=== PATIENT | male | born 1995 ===

== ENCOUNTER 2024-10-22 17:36 | Inpatient (IN) | payer OTHER, SELFPAY ==
[2024-10-22] VITALS (42 sets, daily range): BP systolic 120–170; BP diastolic 68–94; PULSE 91–120; RESP 15–32; TEMP 36.6–38.5; O2SAT 94–100
--- NOTE | 2024-10-22 17:53 | ED.GENADUL_ITS ---
Discharge Plan Disposition Patient Disposition: Admit to [facility] Discharge Details Primary Care Provider: AnnieLocal ED Provider: Aria Maurer Home Meds and New Rx's Prescriptions: No Action metformin 500 mg tablet 500 mg PO BID Patient Comments: Pt states he has not taken his medication for several weeks - ML 10/22/24 HPI General Mode of arrival: wheelchair . Date/Time Provider Initiated Documentation: 10/22/24 17:44 . Limitations to Documentation: no limitations . Information obtained by: patient, family, RN notes reviewed and old records reviewed . HPI Narrative: 29-year-old male presents to the ER chief complaint of abdominal pain and vomiting since this morning. History of type 2 diabetes mellitus has not been taking his metformin for approximately a month due to financial reasons. No h istory abdominal surgeries. BGL in triage is 267. He did take some Tums after second time he vomited. He reports he has vomited 3 times. Denies any fever or chills he is complaining of generalized abdominal pain. Related Data Home Medications ?Medication ?Instructions ?Recorded ?Confirmed metformin 500 mg tablet 500 mg PO BID 10/22/24 10/22/24 Allergies Allergy/AdvReac Type Severity Reaction Status Date / Time No Known Allergies Allergy Verified 10/22/24 17:43 General Stated Complaint: GenMedical LEIA: 3 Review of Systems All systems reviewed & are unremarkable except as noted in HPI and below Constitutional Constitutional: Reports as per HPI and Reports fever(s) Gastrointestinal Gastrointestinal: Reports abdominal pain, Reports nausea and Reports vomiting Exam Narrative Exam Narrative: Constitutional: Alert and oriented x3. Appears stated age. Obese body habitus. Does appear somewhat pale. Head: Normocephalic, no trauma. Eyes: Pupils PERRL, Red reflex noted, EOM's intact. Eyelids symmetrical without lesions, discharge, or swelling. ENT: Bilateral TM's WNL, External ear normal to inspection, no mastoid TTP, swelling, or erythema, Nasal turbinates WNL, no nasal discharge. Normal dentition, Posterior pharynx WNL, no exudate. Chest: RRR, Normal S1, S2, distal pulses intact. Resp: Lungs clear to auscultation bilaterally, no wheezes, rales, or rhonchi. Abdomen: Soft, non-distended, Normoactive bowel sounds all 4 quads. Generalized tenderness with palpation. Musculoskeletal: Normal gait, Moves all 4 extremities without difficulty. Skin: No suspicious rashes or lesions. Capillary refill less than 2 sec. Neurologic: Cranial nerves II-XII intact. Alert and oriented x 3. Motor: No deficits noted. Sensory: Intact bilaterally all 4 extremities. Hematologic/Lymphatic: No ecchymosis, no lymphadenopathy. Course Vital Signs Vital signs: Vital Signs Temperature 36.6 C 10/22/24 17:37 Pulse 106 H 10/22/24 17:37 Respiratory Rate 18 10/22/24 17:37 Blood Pressure 140/93 H 10/22/24 17:37 Pulse Oximetry 100 10/22/24 17:37 Temperature 36.6 C 10/22/24 17:46 Temperature Source Oral 10/22/24 17:46 Pulse 106 H 10/22/24 17:46 Respiratory Rate 18 10/22/24 17:46 Blood Pressure 140/93 H 10/22/24 17:46 Blood Pressure Position Sitting 10/22/24 17:46 Pulse Oximetry 100 10/22/24 17:46 Oxygen Delivery Method Room Air 10/22/24 17:46 Oxygen Flow Rate 0 10/22/24 17:46 Pain Level 8 10/22/24 17:46 Medical Decision Making 29-year-old male presents to the ER chief complaint of abdominal pain and vomiting since this morning. History of type 2 diabetes mellitus has not been taking his metformin for approximately a month due to financial reasons. No history abdominal surgeries. BGL in triage is 267. He did take some Tums after second time he vomited. He reports he has vomited 3 times. Denies any fever or chills he is complaining of generalized abdominal pain. Workup ordered including CBC CMP hemoglobin A1c lactate lipase urinalysis Zofran 4 mg IV. Lactate 2.5, liter of LR ordered, informed by staffing program manager that patient is febrile 38.5 g of Tylenol IV ordered, blood cultures x 2, Fluvid chest x-ray CT abdomen pelvis. Hemoglobin A1c is 10.6 glucose is 282 bilirubin 1.37 lipase within normal limits. Anion gap 16.9. Radiologist Dr. Seay regarding CT abd Pelvis and chest x-ray. Chest x-ray wit hin normal limits, fatty liver noted, fluid-filled small bowel loops possible enteritis. No evidence of appendicitis or bowel obstruction. No evidence of perirectal abscess. See official report. 40meq KCL and NS ordered at 200/hr, Insulin drip ordered. Will discuss patient case with hospitalist Dr. Anaya. Insulin drip on hold at this time until eval by Dr. Anaya. This text was generated using Whodiniation system, please disregard any oddities of phrase or misspellings. Care is to be handed off to oncoming provider Susana Ishaan Liang pending CT chest rule out PE with most likely admission. Medical Records Medical records reviewed: Yes I reviewed the patient's medical records. Imaging Data Radiologic Study: Imaging: CT Scan Radiologist's impression: CONTRAST MATERIAL: Intravenous: Omnipaque-350 100cc Oral: None COMPARISON: CR XR CHEST 2V PA LATERAL from 10/22/2024 FINDINGS: VISUALIZED LUNG BASES: No nodules nor pleural effusions evident. ABDOMEN: There is no ascites. LIVER: Liver is diffusely hypodense implying steatosis. There no discrete focal hepatic lesions. No dilated intrahepatic ducts. GALLBLADDER/BILIARY: No obvious gallbladder pathology. CBD is not dilated. PANCREAS: No evidence of pancreatic mass nor dilatation of the pancreatic duct. SPLEEN: Spleen is not enlarged. No obvious intrasplenic lesions. Splenic and portal veins are patent. ADRENALS: There are no significant adrenal masses. KIDNEYS:No cysts evident. No solid renal masses. No calculi nor hydronephrosis.. ABDOMINAL AORTA: Abdominal aorta is not enlarged. LYMPH NODES:There is no retroperitoneal nor paraaortic adenopathy. ABDOMINAL WALL: No evidence of significant anterior abdominal wall nor inguinal hernia. GI: There are some fluid-filled small bowel loops. Small bowel loops upper normal diameter. Suspect element of possible enteritis. Normal appearing fecal stream in the colon. No obvious colitis pattern evident. No evidence of bowel obstruction, free air, nor abscess. No abnormal mesenteric masses nor prominent mesenteric lymphadenopathy. PELVIS: GI: No evidence of appendicitis.No evidence of significant sigmoid diverticular disease. No evidence of colitis pattern. LYMPH NODES: There is no intrapelvic nor inguinal adenopathy. REPRODUCTIVE: Prostate normal size. Seminal vesicles unremarkable. URINARY BLADDER: No calculi nor obvious masses evident. Normal wall thickness. OSSEOUS: No fractures and no significant osseous lesions. Sacroiliac joints appear unremarkable. IMPRESSION: 1. Liver is diffusely hypodense implying steatosis. Liver size is slightly prominent. There are no focal hepatic lesions. Correlation with appropriate blood work recommended. There is no dilatation biliary tree, both intra and extrahepatic. 2. Fluid-filled but nondilated small bowel loops; probable element of enteritis. Lab Data Lab results reviewed: Yes I reviewed the patient's lab results. Labs: 10/22/24 19:30 Blood Blood Culture - Pending 10/22/24 18:54 Blood Blood Culture - Pending Laboratory Tests Range/Units 10/22/24 10/22/24 10/22/24 18:01 18:55 20:38 WBC (4.4-10.8) 10^3/uL 16.46 H RBC (4.36-5.78) 10^6/uL 6.12 H Hgb (13.5-17.5) g/dL 17.8 H Hct (40.0-50.0) % 51.2 H MCV (80-95) fL 84 MCH (27.0-33.0) pg 29.1 MCHC (32.0-36.0) % 34.8 RDW (11.8-14.1) % 12.4 Plt Count (130-400) 10^3/uL 290 MPV (8.0-11.0) fL 9.8 Immature Gran % % 0.7 Neutrophils % % 87.2 Lymphocytes % % 7.8 Monocytes % % 3.7 Eosinophils % % 0.2 Basophils % % 0.4 Nucleated RBC % (0.0-0.3) % 0.0 Absolute Neutrophils (1.2-6.7) 10^3/uL 14.35 H Absolute Lymphocytes (1.2-3.4) 10^3/uL 1.28 Absolute Monocytes (0.1-0.8) 10^3/uL 0.61 Absolute Eosinophils (0.0-0.7) 10^3/uL 0.03 Absolute Basophils (0.0-0.2) 10^3/uL 0.07 RBC Morphology Normal VBG pH (7.31-7.41) VBG pCO2 (41-51) mmHg VBG pO2 mmHg VBG HCO3 (23-28) mmol/L VBG Total CO2 (24-29) mmol/L VBG O2 Saturation % VBG Base Excess (-2-3) mmol/L VBG Lactate (0.6-1.4) mmol/L 2.5 H* Sodium (136-145) mmol/L 139 Potassium (3.5-5.1) mmol/L 3.8 Chloride (98-107) mmol/L 102 Carbon Dioxide (21.0-32.0) mmol/L 20.1 L Anion Gap (3-11) mmol/L 16.9 H BUN (7-18) mg/dL 14 Creatinine (0.70-1.30) mg/dL 1.0 Est GFR (CKD-EPI 2020) (mL/min/1.73m2) 103.84 Glucose (74-106) mg/dL 282 H Hemoglobin A1c (<5.7) % 10.6 H Calcium (8.5-10.1) mg/dL 9.7 Magnesium (1.8-2.4) mg/dL 1.9 Total Bilirubin (0.2-1.0) mg/dL 1.37 H AST (15-37) U/L 12 L ALT (16-63) U/L 34 Alkaline Phosphatase (46-116) U/L 93 Creatine Kinase (39-308) U/L Troponin I (<or=76) ng/L Total Protein (6.4-8.2) g/dL 9.2 H Albumin (3.4-5.0) g/dL 4.6 Lipase (<78) U/L 35 Urine Color (Yellow) Yellow Urine Clarity (Clear) Clear Urine pH (5-8) 5.5 Ur Specific [place] (1.005-1.025) 1.010 Urine Protein (Neg-Trace) mg/dL 30 H Urine Ketones (Negative) mg/dL >=160 H Urine Blood (Negative) Negative Urine Nitrite (Negative) Negative Urine Bilirubin (Negative) Negative Urine Urobilinogen (Up to 0.2) mg/dL 0.2 Ur Leukocyte Esterase (Negative) Negative Urine RBC (0-2) HPF 0-2 Urine WBC (0-5) HPF 3-5 Ur Epithelial Cells (Negative) HPF Negative Urine Crystals (Negative) HPF Negative Urine Bacteria (Negative) HPF Negative Urine Casts (Negative) LPF Negative Urine Mucus (Negative) Negative Ur Culture Indicated? No Urine Glucose (Negative) mg/dL 500 H COVID-19 Source NASOPHARYNX SARS-CoV-2 (PCR) (Negative) Negative Influenza Type A (PCR) (Negative) Negative Influenza Type B (PCR) (Negative) Negative RSV (PCR) (Negative) Negative Range/Units 10/22/24 10/22/24 20:40 22:00 WBC (4.4-10.8) 10^3/uL RBC (4.36-5.78) 10^6/uL Hgb (13.5-17.5) g/dL Hct (40.0-50.0) % MCV (80-95) fL MCH (27.0-33.0) pg MCHC (32.0-36.0) % RDW (11.8-14.1) % Plt Count (130-400) 10^3/uL MPV (8.0-11.0) fL Immature Gran % % Neutrophils % % Lymphocytes % % Monocytes % % Eosinophils % % Basophils % % Nucleated RBC % (0.0-0.3) % Absolute Neutrophils (1.2-6.7) 10^3/uL Absolute Lymphocytes (1.2-3.4) 10^3/uL Absolute Monocytes (0.1-0.8) 10^3/uL Absolute Eosinophils (0.0-0.7) 10^3/uL Absolute Basophils (0.0-0.2) 10^3/uL RBC Morphology VBG pH (7.31-7.41) 7.47 H VBG pCO2 (41-51) mmHg 26 L VBG pO2 mmHg 71 VBG HCO3 (23-28) mmol/L 18 L VBG Total CO2 (24-29) mmol/L 16 L VBG O2 Saturation % 97 VBG Base Excess (-2-3) mmol/L -5 L VBG Lactate (0.6-1.4) mmol/L 1.4 Sodium (136-145) mmol/L 139 Potassium (3.5-5.1) mmol/L 3.3 L Chloride (98-107) mmol/L 105 Carbon Dioxide (21.0-32.0) mmol/L 19.6 L Anion Gap (3-11) mmol/L 14.4 H BUN (7-18) mg/dL 13 Creatinine (0.70-1.30) mg/dL 0.9 Est GFR (CKD-EPI 2020) (mL/min/1.73m2) 117.83 Glucose (74-106) mg/dL 261 H Hemoglobin A1c (<5.7) % Calcium (8.5-10.1) mg/dL 8.4 L Magnesium (1.8-2.4) mg/dL Total Bilirubin (0.2-1.0) mg/dL AST (15-37) U/L ALT (16-63) U/L Alkaline Phosphatase (46-116) U/L Creatine Kinase (39-308) U/L 44 Troponin I (<or=76) ng/L < 4 Total Protein (6.4-8.2) g/dL Albumin (3.4-5.0) g/dL Lipase (<78) U/L Urine Color (Yellow) Urine Clarity (Clear) Urine pH (5-8) Ur Specific [place] (1.005-1.025) Urine Protein (Neg-Trace) mg/dL Urine Ketones (Negative) mg/dL Urine Blood (Negative) Urine Nitrite (Negative) Urine Bilirubin (Negative) Urine Urobilinogen (Up to 0.2) mg/dL Ur Leukocyte Esterase (Negative) Urine RBC (0-2) HPF Urine WBC (0-5) HPF Ur Epithelial Cells (Negative) HPF Urine Crystals (Negative) HPF Urine Bacteria (Negative) HPF Urine Casts (Negative) LPF Urine Mucus (Negative) Ur Culture Indicated? Urine Glucose (Negative) mg/dL COVID-19 Source SARS-CoV-2 (PCR) (Negative) Influenza Type A (PCR) (Negative) Influenza Type B (PCR) (Negative) RSV (PCR) (Negative) Quality:SDOH Health Related Social Needs: No Data to Display [facility] Social History Smoking/Tobacco Use Status: Never Smoking risk assessment performed?: Yes Alcohol Intake: never Drug use: Never Substance use type: does not use Do you feel safe at home: Yes Do you feel safe in your relationship?: Yes
[2024-10-22 18:07] LABS: Abs Immature Grans 0.12 10^3/uL (0.0-0.06); Absolute Basophil Count 0.07 10^3/uL (0.0-0.2); Absolute Eosinophil Count 0.03 10^3/uL (0.0-0.7); Absolute Lymphocyte Count 1.28 10^3/uL (1.2-3.4); Absolute Monocyte Count 0.61 10^3/uL (0.1-0.8); Absolute Neutrophil Count 14.35 10^3/uL (1.2-6.7); Basophils % 0.4 %; Eosinophils % 0.2 %; HCT 51.2 % (40.0-50.0); HGB 17.8 g/dL (13.5-17.5); Immature Grans % 0.7 %; Lactate 2.5 mmol/L (0.6-1.4); Lymphocytes % 7.8 %; MCH 29.1 pg (27.0-33.0); MCHC 34.8 % (32.0-36.0); MCV 84 fL (80-95); MPV 9.8 fL (8.0-11.0); Monocytes % 3.7 %; Neutrophils % 87.2 %; Platelet Count 290 10^3/uL (130-400); RBC 6.12 10^6/uL (4.36-5.78); RDW 12.4 % (11.8-14.1); RDW-SD 37.2 fL; WBC 16.46 10^3/uL (4.4-10.8)
[2024-10-22] MEDS: Lactated Ringers 1,000 ML 1000 ML IV (18:16)
[2024-10-22 18:23] LABS: ALT 34 U/L (16-63); AST 12 U/L (15-37); Albumin 4.6 g/dL (3.4-5.0); Alkaline Phosphatase 93 U/L (46-116); Anion Gap 16.9 mmol/L (3-11); BUN 14 mg/dL (7-18); Bilirubin, Total 1.37 mg/dL (0.2-1.0); CO2 20.1 mmol/L (21.0-32.0); Calcium 9.7 mg/dL (8.5-10.1); Chloride 102 mmol/L (98-107); Diff Comment Diff Reviewed; Estimated GFR 103.84 (mL/min/1.73m2); Glucose 282 mg/dL (74-106); Lipase 35 U/L (<78); Magnesium 1.9 mg/dL (1.8-2.4); Potassium 3.8 mmol/L (3.5-5.1); RBC Morphology Normal; Sodium 139 mmol/L (136-145); Total Protein 9.2 g/dL (6.4-8.2)
[2024-10-22] MEDS: Ondansetron 4 MG/2 ML VIAL IVP (18:30)
--- NOTE | 2024-10-22 18:30 | DI.RAD_ITS ---
Exam(s) XR CHEST 2V PA LATERAL EXAM: XR CHEST 2V PA LATERAL CLINICAL HISTORY: Fever. TECHNIQUE: 2D digital imaging was performed. COMPARISON: No exams were available for comparison FINDINGS: 2 views: Heart size is normal. The mediastinum is not widened. Lungs are clear. No infiltrates nor pleural effusions. IMPRESSION: No acute pulmonary findings. DATA REPOSITORY: RADIATION DOSE DELIVERED:
--- NOTE | 2024-10-22 18:30 | DI.CT_ITS ---
Exam(s) CT ABDOMEN PELVIS W EXAM: CT ABDOMEN PELVIS W CLINICAL HISTORY: Abdominal pain, fever. TECHNIQUE: Imaging Protocol: Axial computed tomography images with coronal and sagittal reformatted images were created and reviewed CONTRAST MATERIAL: Intravenous: Omnipaque-350 100cc Oral: None COMPARISON: CR XR CHEST 2V PA LATERAL from 10/22/2024 FINDINGS: VISUALIZED LUNG BASES: No nodules nor pleural effusions evident. ABDOMEN: There is no ascites. LIVER: Liver is diffusely hypodense implying steatosis. There no discrete focal hepatic lesions. No dilated intrahepatic ducts. GALLBLADDER/BILIARY: No obvious gallbladder pathology. CBD is not dilated. PANCREAS: No evidence of pancreatic mass nor dilatation of the pancreatic duct. SPLEEN: Spleen is not enlarged. No obvious intrasplenic lesions. Splenic and portal veins are paten t. ADRENALS: There are no significant adrenal masses. KIDNEYS:No cysts evident. No solid renal masses. No calculi nor hydronephrosis.. ABDOMINAL AORTA: Abdominal aorta is not enlarged. LYMPH NODES:There is no retroperitoneal nor paraaortic adenopathy. ABDOMINAL WALL: No evidence of significant anterior abdominal wall nor inguinal hernia. GI: There are some fluid-filled small bowel loops. Small bowel loops upper normal diameter. Suspect element of possible enteritis. Normal appearing fecal stream in the colon. No obvious colitis jason clarisa evident. No evidence of bowel obstruction, free air, nor abscess. No abnormal mesenteric masses nor prominent mesenteric lymphadenopathy. PELVIS: GI: No evidence of appendicitis.No evidence of significant sigmoid diverticular disease. No evidence of colitis pattern. LYMPH NODES: There is no intrapelvic nor inguinal adenopathy. REPRODUCTIVE: Prostate normal size. Seminal vesicles unremarkable. URINARY BLADDER: No calculi nor obvious masses evident. Normal wall thickness. OSSEOUS: No fractures and no significant osseous lesions. Sacroiliac joints appear unremarkable. IMPRESSION: 1. Liver is diffusely hypodense implying steatosis. Liver size is slightly prominent. There are no focal hepatic lesions. Correlation with appropriate blood work recommended. There is no dilatation biliary tree, both intra and extrahepatic. 2. Fluid-filled but nondilated small bowel loops; probable element of enteritis. Report called by myself to ER provider 10/22/2024 at 7:25 p.m. RADIATION DOSE DELIVERED: 1,270.74mGy.cm Total DLP DATA REPOSITORY: All CT scans at this facility are submitted to the National Radiology Data Registry (NRDR) Dose Index Registry (DIR) with the [employer] ([employer]). RADIATION OPTIMIZATION: All CT scans at this facility use at least one of these dose optimization te chniques: automated exposure control; mA and/or kV adjustment per patient size (includes targeted exa ms where dose is matched to clinical indication); or iterative reconstruction.
[2024-10-22 18:35] LABS: Hemoglobin A1C 10.6 % (<5.7)
[2024-10-22] MEDS: ACETAMINOPHEN 1,000 MG/100 ML BAG 400 MG IVPB (18:47)
[2024-10-22] MEDS: Normal Saline - Diluent 50 ML VIAL IJ ×2 (19:08→21:51)
[2024-10-22] MEDS: Omnipaque 350 MG/ML 100 ML BTL IJ ×2 (19:09→21:50)
[2024-10-22 19:36] LABS: COVID-19 PCR Negative (Negative); Influenza A PCR Negative (Negative); Influenza B PCR Negative (Negative); RSV PCR Negative (Negative)
[2024-10-22 19:37] LABS: Source NASOPHARYNX
[2024-10-22] MEDS: Ibuprofen 600 MG TAB PO (20:20)
[2024-10-22 20:50] LABS: Lactate 1.4 mmol/L (0.6-1.4)
--- NOTE | 2024-10-22 21:00 | DI.CT_ITS ---
Exam(s) CT CHEST PE CTA EXAM: CT CHEST PE CTA CLINICAL HISTORY: Tachycardia, chest pain, SOB. TECHNIQUE: Imaging Protocol: CT angiography of the chest was performed using pulmonary embolus marnie col. Multi planar reconstructions were performed. CONTRAST MATERIAL: Intravenous: Omnipaque 350 Contrast volume: 85 cc COMPARISON: No exams were available for comparison FINDINGS: CHEST: PULMONARY ARTERIES: There are no intraluminal filling defects to suggest acute pulmonary emboli. LUNGS: There are no infiltrates nor evidence of pulmonary infarction.. There are no pleural effusions . MEDIASTINUM: There is no hilar nor mediastinal adenopathy. Visualized thyroid unremarkable. CARDIAC: Heart size is upper normal. There is no pericardial effusion.Caliber of the thoracic aorta is within normal limits. No evidence of dissection there is no significant shift of the interventricu lar septum. PARTIALLY VISUALIZED UPPERMOST ABDOMEN: Hepatic steatosis noted OSSEOUS: No significant osseous lesions.. IMPRESSION: 1. No evidence of acute pulmonary emboli. No evidence of pulmonary infarction. No pulmonary infiltr ates and no pleural effusions. 2. Hepatic steatosis noted RADIATION DOSE DELIVERED: 321.22mGy.cm Total DLP DATA REPOSITORY: All CT scans at this facility are submitted to the National Radiology Data Registry (NRDR) Dose Index Registry (DIR) with the [employer] (ACR). RADIATION OPTIMIZATION: All CT scans at this facility use at least one of these dose optimization te chniques: automated exposure control; mA and/or kV adjustment per patient size (includes targeted exa ms where dose is matched to clinical indication); or iterative reconstruction.
[2024-10-22 21:01] LABS: Bilirubin Negative (Negative); Blood Negative (Negative); Clarity Clear (Clear); Glucose 500 mg/dL (Negative); Ketones >=160 mg/dL (Negative); Leukocyte Esterase Negative (Negative); Nitrite Negative (Negative); Urobilinogen 0.2 mg/dL (Up to 0.2); pH 5.5 (5-8)
[2024-10-22 21:12] LABS: Bacteria Negative HPF (Negative); C & S Indicated? No; Casts Negative LPF (Negative); Crystals Negative HPF (Negative); Epithelial Cells Negative HPF (Negative); Mucus Negative (Negative); RBC 0-2 HPF (0-2)
[2024-10-22] MEDS: Normal Saline 1,000 ML 1000 ML IV (21:15)
--- NOTE | 2024-10-22 21:15 | RT.EKG_ITS ---
APPROVED REPORT Exam: Resting ECG Reason for Exam: Chest pain Patient Location: E HR:106 bpm ECG Measurements Heart Rate 106 AXIS MT 159 P 21 QRSd 85 QRS 24 QT 325 T 29 QTc 433 Conclusion Sinus tachycardia 106 no aute ischemia
[2024-10-22] MEDS: Albuterol/Ipratropium 3 ML UPD VIAL UPD (21:29)
[2024-10-22] MEDS: Aspirin 81 MG CHEW 324 MG CH (21:29)
[2024-10-22] MEDS: Insulin REGULAR-Human 100 UNITS/ML UNIT 10 UNITS IV (21:39)
--- NOTE | 2024-10-22 21:39 | W.EDPROG ---
Date of service: 10/22/24 Time of Service: 21:39 Medical Decision Making Case reviewed with nurse practitioner. Patient is a 29-year-old gentleman with history of diabetes, noncompliant with medication presenting with vomiting and abdominal pain for 1 day. On lab work evaluation, white blood cell hemoglobin hematocrit are all elevated likely due to dehydration. Initially lactic acid was elevated after 1 L of IV fluids, it came down to 1.4. Patient has an elevated anion gap and carbon dioxide level of 20 in addition to his hyperglycemia, concern for likely DKA given that he also has significant ketones in his urine. IV insulin has been given, a VBG has been ordered. His viral testing is negative. The CT report was reviewed, mild ileus possible enteritis but no bowel obstruction. Consistent with symptoms today. Patient then developed acute chest pain. EKG ordered and reviewed: Sinus tachycardia [address] changes, LVH. A dose of aspirin was given the patient was sent for CT of his chest. Quality:[facility] Health Related Social Needs: No Data to Display Discharge Plan Disposition Patient Disposition: Admit to [facility] Discharge Details Primary Care Provider: Annie,Local ED Provider: Aria Maurer Home Meds and New Rx's Prescriptions: No Action metformin 500 mg tablet 500 mg PO BID Patient Comments: Pt states he has not taken his medication for several weeks - ML 10/22/24
[2024-10-22 22:05] LABS: BE (Venous) -5 mmol/L (-2-3); HCO3 (Venous) 18 mmol/L (23-28); O2 Sat (Venous) 97 %; TCO2 (Venous) 16 mmol/L (24-29); pCO2 (Venous) 26 mmHg (41-51); pH (Venous) 7.47 (7.31-7.41); pO2 (Venous) 71 mmHg
[2024-10-22 22:18] LABS: Anion Gap 14.4 mmol/L (3-11); BUN 13 mg/dL (7-18); CO2 19.6 mmol/L (21.0-32.0); CREATININE 0.9 mg/dL (0.70-1.30); Calcium 8.4 mg/dL (8.5-10.1); Chloride 105 mmol/L (98-107); Estimated GFR 117.83 (mL/min/1.73m2); Glucose 261 mg/dL (74-106); Potassium 3.3 mmol/L (3.5-5.1); Sodium 139 mmol/L (136-145)
[2024-10-22 22:26] LABS: Creatine Kinase 44 U/L (39-308)
[2024-10-22 22:27] LABS: Troponin I < 4 ng/L (<or=76)
[2024-10-22] MEDS: POTASSIUM CHLORIDE/0.9% NACL 1,000 ML 200 MEQ IV (22:57)
--- NOTE | 2024-10-22 23:12 | W.PM.HP.N ---
Date of service: 10/22/24 Time of Service: 23:12 Assessment and Plan Assessment and plan (1) Gastroenteritis: Status: Acute Assessment and plan: I believe the most likely diagnosis here is gastroenteritis -- with compatible symptoms, fever, leukocytosis and compatible CT findings. I think the ketonuria is likely a starvation type ketosis. I cannot at present account for what appears to be a respiratory alkalosis -- perhaps patient discomfort is creating some hyperventilation? Gastroenteritis: supportive care with IVF, antiemetics, track electrolytes and renal function DM: SS coverage q6H for now Respiratory alkalosis: trend VBG for now Full Code History of Present Illness History of Present Illness Chief Complaint: vomiting Narrative: 29 male with Type 2 DM -- here with one day of bilious vomiting and vague periumbilical abdominal pain. No diarrhea. In ER findings of note for temp 38.5, white count 16, and CT abdomen showing few fluid filled loops small bowel c/w enteritis, and fatty liver, no other significant findings. Lab of note for VBG 7.47, pCO2 27; HCO3 20; glucose 282, K 3.3; urine +ketonuria, 3-5 WBC/hpf; Lactate 2.5, repeat 1.4 after IVF. Patient given Zofran, 2L IVF and 10 units insulin. I was asked to evaluate for admission. Patient provides little history, confirms basic details. Review of Systems Narrative: per HPI PFSH All Active Problems (Updated 10/22/24 @ 23:22 by Shemar Anaya MD) Gastroenteritis (Acute) Social History Smoking/Tobacco Use Status: Never Smoking risk assessment performed?: Yes Alcohol Intake: never Drug use: Never Substance use type: does not use Do you feel safe at home: Yes Do you feel safe in your relationship?: Yes Meds Allergies and Home Medications Allergies Allergy/AdvReac Type Severity Reaction Status Date / Time No Known Allergies Allergy Verified 10/22/24 17:43 Home Medications ?Medication ?Instructions ?Recorded ?Confirmed ?Type metformin 500 mg tablet 500 mg PO BID 10/22/24 10/22/24 History Exam Narrative Exam Narrative: 126/68, 105, 37.3, 23, 98% RA. HEENT dry oral mucosa; neck supple; lungs clear; heart RRR; abdomen +BS, soft and NT; extremities w/o edema; neuro sleepy but answers questions appropriately, moves all 4s Results Labs 10/22/24 18:01 10/22/24 22:00 Labs: Laboratory Results - last 24 hr 10/22/24 10/22/24 10/22/24 18:01 18:55 20:38 WBC 16.46 H RBC 6.12 H Hgb 17.8 H Hct 51.2 H MCV 84 MCH 29.1 MCHC 34.8 RDW 12.4 Plt Count 290 MPV 9.8 Immature Gran % 0.7 Neutrophils % 87.2 Lymphocytes % 7.8 Monocytes % 3.7 Eosinophils % 0.2 Basophils % 0.4 Nucleated RBC % 0.0 Absolute Neutrophils 14.35 H Absolute Lymphocytes 1.28 Absolute Monocytes 0.61 Absolute Eosinophils 0.03 Absolute Basophils 0.07 RBC Morphology Normal VBG pH VBG pCO2 VBG pO2 VBG HCO3 VBG Total CO2 VBG O2 Saturation VBG Base Excess VBG Lactate 2.5 H* Sodium 139 Potassium 3.8 Chloride 102 Carbon Dioxide 20.1 L Anion Gap 16.9 H BUN 14 Creatinine 1.0 Est GFR (CKD-EPI 2020) 103.84 Glucose 282 H Hemoglobin A1c 10.6 H Calcium 9.7 Magnesium 1.9 Total Bilirubin 1.37 H AST 12 L ALT 34 Alkaline Phosphatase 93 Creatine Kinase Troponin I Total Protein 9.2 H Albumin 4.6 Lipase 35 Urine Color Yellow Urine Clarity Clear Urine pH 5.5 Ur Specific [place] 1.010 Urine Protein 30 H Urine Ketones >=160 H Urine Blood Negative Urine Nitrite Negative Urine Bilirubin Negative Urine Urobilinogen 0.2 Ur Leukocyte Esterase Negative Urine RBC 0-2 Urine WBC 3-5 Ur Epithelial Cells Negative Urine Crystals Negative Urine Bacteria Negative Urine Casts Negative Urine Mucus Negative Ur Culture Indicated? No Urine Glucose 500 H COVID-19 Source NASOPHARYNX SARS-CoV-2 (PCR) Negative Influenza Type A (PCR) Negative Influenza Type B (PCR) Negative RSV (PCR) Negative 10/22/24 10/22/24 20:40 22:00 WBC RBC Hgb Hct MCV MCH MCHC RDW Plt Count MPV Immature Gran % Neutrophils % Lymphocytes % Monocytes % Eosinophils % Basophils % Nucleated RBC % Absolute Neutrophils Absolute Lymphocytes Absolute Monocytes Absolute Eosinophils Absolute Basophils RBC Morphology VBG pH 7.47 H VBG pCO2 26 L VBG pO2 71 VBG HCO3 18 L VBG Total CO2 16 L VBG O2 Saturation 97 VBG Base Excess -5 L VBG Lactate 1.4 Sodium 139 Potassium 3.3 L Chloride 105 Carbon Dioxide 19.6 L Anion Gap 14.4 H BUN 13 Creatinine 0.9 Est GFR (CKD-EPI 2020) 117.83 Glucose 261 H Hemoglobin A1c Calcium 8.4 L Magnesium Total Bilirubin AST ALT Alkaline Phosphatase Creatine Kinase 44 Troponin I < 4 Total Protein Albumin Lipase Urine Color Urine Clarity Urine pH Ur Specific [place] Urine Protein Urine Ketones Urine Blood Urine Nitrite Urine Bilirubin Urine Urobilinogen Ur Leukocyte Esterase Urine RBC Urine WBC Ur Epithelial Cells Urine Crystals Urine Bacteria Urine Casts Urine Mucus Ur Culture Indicated? Urine Glucose COVID-19 Source SARS-CoV-2 (PCR) Influenza Type A (PCR) Influenza Type B (PCR) RSV (PCR) Last Vital Signs Temp 37.3 C 10/22/24 22:34 Pulse 105 H 10/22/24 22:34 Resp 23 10/22/24 22:34 BP 126/68 10/22/24 22:34 Pulse Ox 98 10/22/24 22:34 Time Spent Time spent with Patient: 40-54 minutes Time was spent: preparing to see the patient(eg.review tests), obtaining and/or reviewing separately otained hiistory, ordering medications,tests, procedures, referring, communicating with other health post acute care nurse practitioner and indepentently interpreting results
--- NOTE | 2024-10-22 23:41 | DI.VRAD_ITS ---
PROCEDURE INFORMATION: Exam: CTA Chest With Contrast Exam date and time: 10/22/2024 9:44 PM Age: 29 years old Clinical indication: Other: Tachycardia, chest pain, SOB TECHNIQUE: Imaging protocol: Computed tomographic angiography of the chest with contrast. Exam focused on the arteries. 3D rendering (Not supervised by radiologist): MIP and/or 3D reconstructed images were created by the technologist. Contrast material: 350; Contrast volume: 85 ml; Contrast route: INTRAVENOUS (IV); COMPARISON: CR XR CHEST 2V PA LATERAL 10/22/2024 7:03 PM FINDINGS: Pulmonary arteries: Normal. No pulmonary emboli. Aorta: Unremarkable. No aortic aneurysm. No aortic dissection. Lungs: Unremarkable. No consolidation. No masses. Pleural spaces: Unremarkable. No pneumothorax. No pleural effusion. Heart: Unremarkable. No cardiomegaly. No pericardial effusion. Lymph nodes: Unremarkable. No enlarged lymph nodes. Liver: There is a diffuse decrease in hepatic parenchymal density, consistent with fatty infiltration. Bones/joints: Mild curvature of the upper thoracic spine convex to the right. Soft tissues: Unremarkable. IMPRESSION: 1. No pulmonary embolism. 2. No acute infiltrates. Dictated and Authenticated by: Kody Mcdonnell MD. Ordering:DOUGLAS Knapp MD
[2024-10-23 00:01] VITALS: BP 137/77; PULSE 105; PULSE 107; RESP 30; O2SAT 96
--- NOTE | 2024-10-23 00:12 | W.PC.ACHO ---
Registration Status: Primary Language: Preferred Language: ED Information & Data Chief Complaint [facility]Medical 10/22/24 17:55 Triage Note Pt arrives to ED c/o 10/22/24 17:37 vomiting which started today + generalized abdominal pain. Type II DM - has not been checking his BGL or taking his meds (x 1 month). No BM x 2 days No hx of abdominal surgeries . BGL = 267 in triage Most Recent Vital Signs Temperature 37.3 C 10/22/24 22:34 Temperature Source Temporal Artery Scan 10/22/24 22:34 Pulse 102 H 10/22/24 23:15 Pulse 109 H 10/22/24 23:20 Respiratory Rate 17 10/22/24 23:20 Respiratory Effort Short of Breath 10/22/24 22:34 Respiratory Depth Shallow 10/22/24 22:34 Respiratory Pattern Normal 10/22/24 22:34 Blood Pressure 141/81 H 10/22/24 23:15 Blood Pressure Mean 96 10/22/24 23:15 Blood Pressure Position Supine 10/22/24 22:34 Pulse Oximetry 99 10/22/24 23:20 Oxygen Delivery Method Room Air 10/22/24 22:34 Oxygen Flow Rate 0 10/22/24 22:34 Pain Level 4 10/22/24 22:34 Allergies No Known Allergies Allergy (Verified 10/22/24 17:43) Precautions Isolation Standard precaution 10/22/24 17:43 Active Medications Generic Name Dose Route Start Last Admin Trade Name Freq PRN Reason Stop Dose Admin Potassium Chloride/Sodium Chloride 1,000 mls @ 200 mls/hr 10/22/24 22:45 10/22/24 22:57 Kcl 40 Meq/Ns IV 200 mls/hr INFUSION JASON Administration Iohexol 100 ml 10/22/24 19:15 10/22/24 21:50 Omnipaque 350 Mg/Ml 100 Ml Btl IJ 11/21/24 23:59 100 ml DIRECTED JASON Administration Sodium Chloride 50 ml 10/22/24 19:15 10/22/24 21:51 Normal Saline - Diluent 50 Ml Vial IJ 50 ml .FOR DI USE JASON Administration IV IV Catheter Type [Right Peripheral IV Antecubital] IV Catheter Gauge [Right 18 Antecubital] Diet Orders Category Date Time Status Nothing Per Oral [DIET] Nutrition 10/23/24 Breakfast Active Diagnostics 10/23/24 10/23/24 10/22/24 Range/Units 06:00 05:35 22:00 WBC Pending (4.4-10.8) 10^3/uL RBC Pending (4.36-5.78) 10^6/uL Hgb Pending (13.5-17.5) g/dL Hct Pending (40.0-50.0) % MCV Pending (80-95) fL MCH Pending (27.0-33.0) pg MCHC Pending (32.0-36.0) % RDW Pending (11.8-14.1) % Plt Count Pending (130-400) 10^3/uL MPV Pending (8.0-11.0) fL Immature Gran % % Neutrophils % % Lymphocytes % % Monocytes % % Eosinophils % % Basophils % % Nucleated RBC % (0.0-0.3) % Absolute Neutrophils (1.2-6.7) 10^3/uL Absolute Lymphocytes (1.2-3.4) 10^3/uL Absolute Monocytes (0.1-0.8) 10^3/uL Absolute Eosinophils (0.0-0.7) 10^3/uL Absolute Basophils (0.0-0.2) 10^3/uL RBC Morphology VBG pH Pending 7.47 H (7.31-7.41) VBG pCO2 Pending 26 L (41-51) mmHg VBG pO2 Pending 71 mmHg VBG HCO3 Pending 18 L (23-28) mmol/L VBG Total CO2 Pending 16 L (24-29) mmol/L VBG O2 Saturation Pending 97 % VBG Base Excess Pending -5 L (-2-3) mmol/L VBG Lactate (0.6-1.4) mmol/L Sodium Pending 139 (136-145) mmol/L Potassium Pending 3.3 L (3.5-5.1) mmol/L Chloride Pending 105 (98-107) mmol/L Carbon Dioxide Pending 19.6 L (21.0-32.0) mmol/L Anion Gap Pending 14.4 H (3-11) mmol/L BUN Pending 13 (7-18) mg/dL Creatinine Pending 0.9 (0.70-1.30) mg/dL Est GFR (CKD-EPI 2020) Pending 117.83 (mL/min/1.73m2) Glucose Pending 261 H (74-106) mg/dL Hemoglobin A1c (<5.7) % Calcium Pending 8.4 L (8.5-10.1) mg/dL Magnesium (1.8-2.4) mg/dL Total Bilirubin (0.2-1.0) mg/dL AST (15-37) U/L ALT (16-63) U/L Alkaline Phosphatase (46-116) U/L Creatine Kinase 44 (39-308) U/L Troponin I < 4 (<or=76) ng/L Total Protein (6.4-8.2) g/dL Albumin (3.4-5.0) g/dL Lipase (<78) U/L Urine Color (Yellow) Urine Clarity (Clear) Urine pH (5-8) Ur Specific [place] (1.005-1.025) Urine Protein (Neg-Trace) mg/dL Urine Ketones (Negative) mg/dL Urine Blood (Negative) Urine Nitrite (Negative) Urine Bilirubin (Negative) Urine Urobilinogen (Up to 0.2) mg/dL Ur Leukocyte Esterase (Negative) Urine RBC (0-2) HPF Urine WBC (0-5) HPF Ur Epithelial Cells (Negative) HPF Urine Crystals (Negative) HPF Urine Bacteria (Negative) HPF Urine Casts (Negative) LPF Urine Mucus (Negative) Ur Culture Indicated? Urine Glucose (Negative) mg/dL COVID-19 Source SARS-CoV-2 (PCR) (Negative) Influenza Type A (PCR) (Negative) Influenza Type B (PCR) (Negative) RSV (PCR) (Negative) Path Cons Comment 10/22/24 10/22/24 10/22/24 Range/Units 20:40 20:38 18:55 WBC (4.4-10.8) 10^3/uL RBC (4.36-5.78) 10^6/uL Hgb (13.5-17.5) g/dL Hct (40.0-50.0) % MCV (80-95) fL MCH (27.0-33.0) pg MCHC (32.0-36.0) % RDW (11.8-14.1) % Plt Count (130-400) 10^3/uL MPV (8.0-11.0) fL Immature Gran % % Neutrophils % % Lymphocytes % % Monocytes % % Eosinophils % % Basophils % % Nucleated RBC % (0.0-0.3) % Absolute Neutrophils (1.2-6.7) 10^3/uL Absolute Lymphocytes (1.2-3.4) 10^3/uL Absolute Monocytes (0.1-0.8) 10^3/uL Absolute Eosinophils (0.0-0.7) 10^3/uL Absolute Basophils (0.0-0.2) 10^3/uL RBC Morphology VBG pH (7.31-7.41) VBG pCO2 (41-51) mmHg VBG pO2 mmHg VBG HCO3 (23-28) mmol/L VBG Total CO2 (24-29) mmol/L VBG O2 Saturation % VBG Base Excess (-2-3) mmol/L VBG Lactate 1.4 (0.6-1.4) mmol/L Sodium (136-145) mmol/L Potassium (3.5-5.1) mmol/L Chloride (98-107) mmol/L Carbon Dioxide (21.0-32.0) mmol/L Anion Gap (3-11) mmol/L BUN (7-18) mg/dL Creatinine (0.70-1.30) mg/dL Est GFR (CKD-EPI 2020) (mL/min/1.73m2) Glucose (74-106) mg/dL Hemoglobin A1c (<5.7) % Calcium (8.5-10.1) mg/dL Magnesium (1.8-2.4) mg/dL Total Bilirubin (0.2-1.0) mg/dL AST (15-37) U/L ALT (16-63) U/L Alkaline Phosphatase (46-116) U/L Creatine Kinase (39-308) U/L Troponin I (<or=76) ng/L Total Protein (6.4-8.2) g/dL Albumin (3.4-5.0) g/dL Lipase (<78) U/L Urine Color Yellow (Yellow) Urine Clarity Clear (Clear) Urine pH 5.5 (5-8) Ur Specific [place] 1.010 (1.005-1.025) Urine Protein 30 H (Neg-Trace) mg/dL Urine Ketones >=160 H (Negative) mg/dL Urine Blood Negative (Negative) Urine Nitrite Negative (Negative) Urine Bilirubin Negative (Negative) Urine Urobilinogen 0.2 (Up to 0.2) mg/dL Ur Leukocyte Esterase Negative (Negative) Urine RBC 0-2 (0-2) HPF Urine WBC 3-5 (0-5) HPF Ur Epithelial Cells Negative (Negative) HPF Urine Crystals Negative (Negative) HPF Urine Bacteria Negative (Negative) HPF Urine Casts Negative (Negative) LPF Urine Mucus Negative (Negative) Ur Culture Indicated? No Urine Glucose 500 H (Negative) mg/dL COVID-19 Source NASOPHARYNX SARS-CoV-2 (PCR) Negative (Negative) Influenza Type A (PCR) Negative (Negative) Influenza Type B (PCR) Negative (Negative) RSV (PCR) Negative (Negative) Path Cons Comment 10/22/24 Range/Units 18:01 WBC 16.46 H (4.4-10.8) 10^3/uL RBC 6.12 H (4.36-5.78) 10^6/uL Hgb 17.8 H (13.5-17.5) g/dL Hct 51.2 H (40.0-50.0) % MCV 84 (80-95) fL MCH 29.1 (27.0-33.0) pg MCHC 34.8 (32.0-36.0) % RDW 12.4 (11.8-14.1) % Plt Count 290 (130-400) 10^3/uL MPV 9.8 (8.0-11.0) fL Immature Gran % 0.7 % Neutrophils % 87.2 % Lymphocytes % 7.8 % Monocytes % 3.7 % Eosinophils % 0.2 % Basophils % 0.4 % Nucleated RBC % 0.0 (0.0-0.3) % Absolute Neutrophils 14.35 H (1.2-6.7) 10^3/uL Absolute Lymphocytes 1.28 (1.2-3.4) 10^3/uL Absolute Monocytes 0.61 (0.1-0.8) 10^3/uL Absolute Eosinophils 0.03 (0.0-0.7) 10^3/uL Absolute Basophils 0.07 (0.0-0.2) 10^3/uL RBC Morphology Normal VBG pH (7.31-7.41) VBG pCO2 (41-51) mmHg VBG pO2 mmHg VBG HCO3 (23-28) mmol/L VBG Total CO2 (24-29) mmol/L VBG O2 Saturation % VBG Base Excess (-2-3) mmol/L VBG Lactate 2.5 H* (0.6-1.4) mmol/L Sodium 139 (136-145) mmol/L Potassium 3.8 (3.5-5.1) mmol/L Chloride 102 (98-107) mmol/L Carbon Dioxide 20.1 L (21.0-32.0) mmol/L Anion Gap 16.9 H (3-11) mmol/L BUN 14 (7-18) mg/dL Creatinine 1.0 (0.70-1.30) mg/dL Est GFR (CKD-EPI 2020) 103.84 (mL/min/1.73m2) Glucose 282 H (74-106) mg/dL Hemoglobin A1c 10.6 H (<5.7) % Calcium 9.7 (8.5-10.1) mg/dL Magnesium 1.9 (1.8-2.4) mg/dL Total Bilirubin 1.37 H (0.2-1.0) mg/dL AST 12 L (15-37) U/L ALT 34 (16-63) U/L Alkaline Phosphatase 93 (46-116) U/L Creatine Kinase (39-308) U/L Troponin I (<or=76) ng/L Total Protein 9.2 H (6.4-8.2) g/dL Albumin 4.6 (3.4-5.0) g/dL Lipase 35 (<78) U/L Urine Color (Yellow) Urine Clarity (Clear) Urine pH (5-8) Ur Specific [place] (1.005-1.025) Urine Protein (Neg-Trace) mg/dL Urine Ketones (Negative) mg/dL Urine Blood (Negative) Urine Nitrite (Negative) Urine Bilirubin (Negative) Urine Urobilinogen (Up to 0.2) mg/dL Ur Leukocyte Esterase (Negative) Urine RBC (0-2) HPF Urine WBC (0-5) HPF Ur Epithelial Cells (Negative) HPF Urine Crystals (Negative) HPF Urine Bacteria (Negative) HPF Urine Casts (Negative) LPF Urine Mucus (Negative) Ur Culture Indicated? Urine Glucose (Negative) mg/dL COVID-19 Source SARS-CoV-2 (PCR) (Negative) Influenza Type A (PCR) (Negative) Influenza Type B (PCR) (Negative) RSV (PCR) (Negative) Path Cons Comment Pending 10/22/24 19:30 Blood Culture - Pending Blood 10/22/24 18:54 Blood Culture - Pending Blood [id number] Documentation Fingerstick Glucose Start: 10/22/24 17:42 Freq: Status: Complete Protocol: Activity Type Activity Date Activity User E-sign Co-sign Detail Recorded Client Recorded Date Recorded By Document 10/22/24 17:41 BKG DAEMON(5) [id number] 10/22/24 17:42 BKG DAEMON(6) Fingerstick Glucose Start: 10/22/24 23:28 Freq: .Q6H Status: Active Protocol: Activity Type Activity Date Activity User E-sign Co-sign Detail Recorded Client Recorded Date Recorded By Document 10/22/24 23:45 BKG DAEMON(7) NVT-BG05 10/22/24 23:45 BKG DAEMON(8) Intake and Output - 24 Hour Total 10/22/24 17:36 thru 10/22/24 22:29 Intake Total 2100 Balance 2100 Weight 127.006 kg Intake: IV 2100 Falls Risk Assessment History of Falls No History 10/22/24 17:46 Contributing Factors Unstable 10/22/24 17:46 Ambulatory Aids Independent 10/22/24 17:46 Tubes/Lines With any additional score 10/22/24 17:46 Gait Evaluation W/any additional score 10/22/24 17:46 Cognition No cognitive impairment 10/22/24 17:46 Fall Total Score 43 10/22/24 17:46 Level of Risk Moderate Risk 10/22/24 17:46 Problems (Last Reviewed 10/22/24 @ 23:20 by Shemar Anaya MD) Gastroenteritis (Acute) v v v v v v v v v Sending and/or Receiving Nurses: Please use comment section below to note any information pertinent to the patient hand-off not included above. Information / Comments: N/V and abd pain, started this am. Hx DM II, does not take metformin x 1 month, does not check blood sugars at home. Recently moved to [facility], does not have a primary care doctor, no bm x 2 days, BGL 267. Most recent 289 FS. 1L NS and 1L LR repeat lactate 1.4 (2.5). temp 38.5. A1C 10.6 Developed CP, SOB, diaphoretic- negative for PE, 324mg aspirin given. Duoneb-felt like throat was closing. BC sent. Fluvid negative. HR 102. 1 gram tylenol, zofran, 10 units regular insulin. Report received from: Rose Ko RN ED @ 0002
[2024-10-23 00:16] VITALS: BP 140/73; PULSE 104
[2024-10-23 00:30] VITALS: BP 141/80; PULSE 106; RESP 32; TEMP 37.5; O2SAT 99
[2024-10-23 00:40] VITALS: RESP 16
[2024-10-23 00:45] VITALS: BP 140/81; PULSE 109; RESP 20; TEMP 36.8; O2SAT 99
--- NOTE | 2024-10-23 01:34 | NUR.NOTE ---
Nursing Note: At 0045, pt's RN attempted to take pt blood sugar per MD order. Pt appeared unresponsive, this RN called to room along with warehouse administrative assistant, ELIZABETH. Pt rousable to painful stimulation, began moaning. VSS at this time, BP 140/81, HR 109, SPO2 99% on RA, respirations 20 temp 36.8C, FS 262. Pt then began refusing interventions, repeatedly stating get out of my room!. Pt sat up abruptly on the edge of the bed. supervisor [employer], ELIZABETH, who was standing on that side of the bed, caught patient as he threw himself down to the floor. Pt landed on ELIZABETH's lap, did not hit head/lose consciousness, slowly lowered to ground. At this time, more staff and security called to room for assistance. Pt refused to stand, began army crawling on the floor. Pt denied pain but refused vital sign check. Staff attempted redirection, offered assistance, and pt continued to refuse staff intervention. Pt began to attempt to sit up, pt assisted to sitting position. Pt assisted to stand/into bed by staff memberx4. 0130: Pt rang call avalos. Pt stated to nurse that he was leaving and his partner was coming to pick him up. This RN notified Héctor LORA. Staff provided AMA paperwork, pt refused to sign. Pt agreeable to PIV removal by ER, RN. Pt spouse called, spoke with this RN, stating Can't you just sedate him? He needs to be there. This RN provided education to pt spouse in regard to pt rights and as pt is alert and oriented, he is able to leave against medical advice and that we cannot hold people in the hospital against their will. Pt then stood and refused wheelchair, walked in de dios with staffx3, continuing to refuse wheelchair transport. Pt eventually walked back into room. Pt spouse, Erwin, arrived to M/S floor and escorted pt off the floor. Pt discharged at 0153.
--- NOTE | 2024-10-23 03:08 | NUR.NOTE ---
Nursing Note: Patient left AMA at 0153. Nurse explained risk of leaving AMA including not receiving treatment and assessment of current illness. Patient and spouse informed that because patient is choosing to leave AMA there will be no discharge instructions. Patient verbalizes risks of leaving AMA and states he would rather than stay in this hospital. Patient refuses to sign AMA form.
--- NOTE | 2024-10-24 16:22 | W.PM.DS.N ---
Date of service: 10/24/24 Time of Service: 16:22 DS: Diagnosis Discharge Diagnosis (1) Gastroenteritis: Status: Acute Discharge Plan Disposition Patient Disposition: Against Medical Advice Condition: Improving Discharge Details Reason For Visit: gastroenteritis Admit Date/Time: 10/22/24 23:28 Admit Provider: Shemar Anaya Attending Provider: Shemar Anaya Primary Care Provider: [facility] Hospital Course: Patient admitted with gastroenteritis, dehydration and hyperglycemia.Treated with IVF, antiemetics and insulin coverage. Shortly after arrival to floor patient left hospital AMA. Home Meds and New Rx's Prescriptions: No Action metformin 500 mg tablet 500 mg PO BID Patient Comments: Pt states he has not taken his medication for several weeks - ML 10/22/24 Discharge Data Discharge Date/Time-TO BE ENTERED AT DEPARTURE: 10/23/24 01:53 DS: Summary Time Spent with Patient providing and/or coordinating discharge services: Less than 30 minutes Status at Discharge Functional status at discharge: independent ambulation Overall status at discharge: other (unknown) Mental Status: other (unknown) Speech and Movement: other (unknown) Mood: other (unknown) Affect: other (inknown) Quality:SDOH Health Related Social Needs: No Data to Display Exam Psych Mental Status: other (unknown) Speech and Movement: other (unknown) Mood: other (unknown) Affect: other (inknown) DS: Data Vitals/I&O Vitals and I&O: Vital Signs Temperature 36.8 C 10/23/24 00:45 Temperature Source Tympanic 10/23/24 00:45 Pulse 109 H 10/23/24 00:45 Pulse 107 H 10/23/24 00:01 Respiratory Rate 20 10/23/24 00:45 Respiratory Effort Short of Breath 10/22/24 22:34 Respiratory Depth Shallow 10/22/24 22:34 Respiratory Pattern Normal 10/22/24 22:34 Blood Pressure 140/81 10/23/24 00:45 Blood Pressure Mean 97 10/23/24 00:16 Blood Pressure Position Supine 10/22/24 22:34 Pulse Oximetry 99 10/23/24 00:45 Oxygen Delivery Method Room Air 10/23/24 00:45 Oxygen Flow Rate 0 10/23/24 00:45 Pain Level 4 10/22/24 22:34 Data Completed and Pending Labs on day of discharge: Preliminary micro results at discharge 10/22/24 19:30 Blood Culture - Preliminary Blood NO GROWTH 24 HOURS 10/22/24 18:54 Blood Culture - Preliminary Blood NO GROWTH 24 HOURS PFSH All Active Problems (Updated 10/22/24 @ 23:22 by Shemar Anaya MD) Gastroenteritis (Acute) Social History Smoking/Tobacco Use Status: Never Smoking risk assessment performed?: Yes Alcohol Intake: never Drug use: Never Substance use type: does not use Do you feel safe at home: Yes Do you feel safe in your relationship?: Yes Time Spent with Patient Time Spent with Patient: <45 minutes Time was spent: other (writing this report)
== END 2024-10-23 01:53 | disposition left against medical advice (07) | DRG 392 ==
LOC: ER 23:56 → MS 10-23 00:20
PROVIDERS: Emergency Medicine; Admitting Provider General Practice; Emergency Provider Registered Nurse Emergency; Visit Provider General Practice
DX: K52.9 Noninfective gastroenteritis and colitis, unspecified (principal); E87.3 Alkalosis; Z68.41 Body mass index [BMI] 40.0-44.9, adult; E11.65 Type 2 diabetes mellitus with hyperglycemia; Z79.84 Long term (current) use of oral hypoglycemic drugs; T38.3X6A Underdosing of insulin and oral hypoglycemic [antidiabetic] drugs, initial encounter; Z91.120 Patient's intentional underdosing of medication regimen due to financial hardship; K76.0 Fatty (change of) liver, not elsewhere classified; E86.0 Dehydration; E66.9 Obesity, unspecified
CPT/HCPCS: 00123; 36415; 36416; 71275; 80048; 80053; 82550; 82805; 82962; 83690; 85027; 87040; 87637; 93005; 94640; 96361; 96365; 96375; 99285; 71046; 74177; 81003; 81015; 83036; 83605; 83735; 84484; 85025; 93010; 99222; J0131; J1815; J2405; J3490; J7620

== ENCOUNTER 2025-02-26 17:48 | Outpatient (REF) | payer OTHER, SELFPAY ==
[2025-02-26 20:32] LABS: Hemoglobin A1C 12.2 % (<5.7)
[2025-02-26 20:36] LABS: Anion Gap 12.3 mmol/L (3-11); BUN 13 mg/dL (7-18); CO2 24.7 mmol/L (21.0-32.0); Calcium 10.3 mg/dL (8.5-10.1); Chloride 90 mmol/L (98-107); Cholesterol 280 mg/dL (<200); Estimated GFR 103.84 (mL/min/1.73m2); HDL Cholesterol 32 mg/dL (>or=40); Potassium 4.5 mmol/L (3.5-5.1); Sodium 127 mmol/L (136-145)
[2025-02-26 20:51] LABS: COMMENT (LAB VIEW ONLY) 14.62 mg/dL
[2025-02-26 20:52] LABS: Microalb ug/mg Crea 168.9 ug/mg Cr
[2025-02-26 21:29] LABS: Triglyceride 1786 mg/dL (<150)
[2025-02-26 21:34] LABS: Glucose 608 mg/dL (74-106)
[2025-02-26 21:56] LABS: LDL CHOLESTEROL 77 mg/dL (<100)
== END 2025-02-26 17:49 | disposition home or self-care (01) ==
LOC: NCHCN 17:48
PROVIDERS: Visit Provider Family Medicine
DX: E13.9 Other specified diabetes mellitus without complications (principal)
CPT/HCPCS: 80048; 80061; 83721; 82043; 82570; 83036

== ENCOUNTER 2025-06-25 19:26 | Outpatient (REF) | payer SELFPAY ==
[2025-06-25 20:03] LABS: Anion Gap 9.8 mmol/L (3-11); BUN 7 mg/dL (7-18); CO2 26.2 mmol/L (21.0-32.0); Calcium 9.4 mg/dL (8.5-10.1); Calculated LDL 130 mg/dL (<100); Chloride 102 mmol/L (98-107); Cholesterol 222 mg/dL (<200); Estimated GFR 121.34 (mL/min/1.73m2); Glucose 240 mg/dL (74-106); HDL Cholesterol 43 mg/dL (>or=40); Potassium 4.4 mmol/L (3.5-5.1); Sodium 138 mmol/L (136-145); TSH 0.54 uIU/mL (0.36-3.74); Triglyceride 245 mg/dL (<150)
== END 2025-06-25 19:27 | disposition home or self-care (01) ==
LOC: NCHCN 19:26
PROVIDERS: PCP Family Medicine; Visit Provider Family Medicine
DX: E13.9 Other specified diabetes mellitus without complications (principal); R63.5 Abnormal weight gain
CPT/HCPCS: 80048; 80061; 84443

== ENCOUNTER 2025-10-08 19:12 | Outpatient (REF) | payer SELFPAY | END 2025-10-08 19:13 | disposition home or self-care (01) | LOC: LBN 19:12 | PROVIDERS: PCP Family Medicine; Visit Provider Physician Assistant Medical | DX: J02.9 Acute pharyngitis, unspecified (principal) | CPT/HCPCS: 87070 ==